=== PATIENT | female | born 1950 | race Caucasian/White ===

== ENCOUNTER 2022-05-30 12:39 | Emergency (ER) | payer OTHER ==
[2022-05-30 12:56] VITALS: BP 126/57; PULSE 79; RESP 16; TEMP 97.9; BMI 20.5
[2022-05-30 13:55] LABS: BASO % 0.3 % (0-2.0); HEMATOCRIT 42.1 % (32.4-45.2); HEMOGLOBIN 13.6 GM/dL (10.7-15.3); LYMPH % 24.8 % (8-40); MCH 30.5 pg (25.7-33.7); MCHC 32.3 g/dl (32.0-36.0); MEAN CELL VOLUME 94.3 fl (80-96); MEAN PLT VOLUME 6.5 fl (7.5-11.1); NEUT % 62.9 % (42.8-82.8); PLATELET COUNT 287 10^3/uL (134-434); RBC 4.47 M/mm3 (3.60-5.2); RDW 13.7 % (11.6-15.6); WHITE BLOOD COUNT 5.9 K/mm3 (4.0-10.0)
[2022-05-30 14:31] LABS: ALBUMIN 3.7 g/dl (3.4-5.0); BLOOD UREA NITROGEN 16.6 mg/dL (7-18)
[2022-05-30 14:33] LABS: CREATININE 0.7 mg/dL (0.55-1.3)
[2022-05-30 14:35] LABS: BILIRUBIN,TOTAL 0.5 mg/dL (0.2-1); TOT PROT 7.3 g/dl (6.4-8.2)
[2022-05-30 15:02] LABS: EPI CELLS >36 /uL (0-25.1); HYALINE CASTS 2 /uL (0-3.1); PH,URINE 6.5 (5.0-8.0); URINE APPEARANCE CLOUDY; URINE BACTERIA 1792 /uL (0-1359); URINE BILIRUBIN NEGATIVE (NEGATIVE); URINE COLOR YELLOW; URINE GLUCOSE (UA) NEGATIVE (NEGATIVE); URINE KETONE NEGATIVE (NEGATIVE); URINE LEUK ESTERASE 1+ (NEGATIVE); URINE NITRITE NEGATIVE (NEGATIVE); URINE PROTEIN NEGATIVE (NEGATIVE); URINE RBC 141 /uL (0-23.9); URINE WBC 59 /uL (0-25.8)
[2022-05-30 15:11] LABS: INR 1.12 (0.83-1.09); PROTHROMBIN TIME (PATIENT) 12.9 SEC (9.7-13.0)
== END 2022-05-30 19:31 | disposition home or self-care (01) ==
LOC: JERFT 12:39 → JER 12:39 → JERFT 19:31
DX: R10.84 Generalized abdominal pain (principal)
CPT/HCPCS: 0241U-QW; 36415; 71046-TC-FY; 71275-TC; 74177-TC; 76700-TC; 80053; 81003; 83690; 84443; 84484; 85025; 85379; 85610; 87086; 93005; 93010; 99285-25; Q9967

== ENCOUNTER 2024-01-15 11:42 | Emergency (ER) | payer OTHER ==
[2024-01-15 12:23] VITALS: BP 135/74; PULSE 88; RESP 18; TEMP 98.3; BMI 19.2
== END 2024-01-15 12:20 | disposition home or self-care (01) ==
LOC: JERFT 11:42
DX: M25.551 Pain in right hip (principal); G89.29 Other chronic pain
CPT/HCPCS: 99283-25

== ENCOUNTER 2024-03-28 05:00 | Day surgery (SDC) | payer OTHER ==
[2024-03-26 11:35] VITALS: BMI 18.8
[2024-03-28 12:50] VITALS: TEMP 98
[2024-03-28] MEDS: BUPIVACAINE HCL/PF 0.5% (5MG/ML) 10 ML VIAL IJ ONE ×2 (14:36)
[2024-03-28] MEDS: LIDOCAINE HCL 1% PRESERVATIVE FREE - 30ML VIAL IJ ONE ×2 (14:36)
[2024-03-28] MEDS: TRIAMCINOLONE ACETONIDE 40 MG/ML 10 ML VIAL IJ ONE ×2 (14:37)
[2024-03-28] MEDS: IOHEXOL 180 MG/1 ML ML IJ ONE ×2 (14:37)
[2024-03-28 14:56] VITALS: BP 112/57; PULSE 60; RESP 19
== END 2024-03-28 15:11 | disposition home or self-care (01) ==
LOC: JASU-SURG 05:00
PROVIDERS: ATTEND Pain Medicine Pain Medicine
PROC: 3E0U3GC Introduction of Other Therapeutic Substance into Joints, Percutaneous Approach (ICD-10-PCS; principal; 2024-03-28 14:35)
DX: M25.551 Pain in right hip (principal)
CPT/HCPCS: 76000-TC-FY

== ENCOUNTER 2024-05-16 11:04 | Inpatient (IN) | payer OTHER ==
[2024-05-16] MEDS ORDERED: guaiFENesin/D-METHORPHAN HB 10 ML UNIT-DOSE CUPS ONE (12:49)
[2024-05-16] MEDS: guaiFENesin 200 MG/10 ML 10 ML UNIT-DOSE CUPS PO ONE (12:52)
[2024-05-16 14:39] LABS: VENOUS BASE EXCESS 3.1 mmol/L (-2-2); VENOUS O2 SATURATION 37.9 % (70-80); VENOUS PCO2 55.3 mmHg (38-52); VENOUS PH 7.351 (7.310-7.410)
[2024-05-16 14:41] LABS: BASO % 0.1 % (0-2.0); HEMATOCRIT 40.5 % (32.4-45.2); HEMOGLOBIN 13.1 GM/dL (10.7-15.3); MCHC 32.4 g/dl (32.0-36.0); MEAN CELL VOLUME 95.7 fl (80-96); MEAN PLT VOLUME 6.5 fl (7.5-11.1); MONO % 6.7 % (3.8-10.2); NEUT % 84.2 % (42.8-82.8); PLATELET COUNT 315 10^3/uL (134-434); RBC 4.23 M/mm3 (3.60-5.2); RDW 13.5 % (11.6-15.6); WHITE BLOOD COUNT 18.4 K/mm3 (4.0-10.0)
[2024-05-16 14:44] LABS: EPI CELLS >36 /uL (0-25.1); HYALINE CASTS 12 /uL (0-3.1); PH,URINE 5.5 (5.0-8.0); URINE APPEARANCE CLOUDY; URINE BACTERIA 283 /uL (0-1359); URINE BILIRUBIN 2+ (NEGATIVE); URINE COLOR DK YELLOW; URINE GLUCOSE (UA) NEGATIVE (NEGATIVE); URINE KETONE 1+ (NEGATIVE); URINE LEUK ESTERASE TRACE (NEGATIVE); URINE NITRITE NEGATIVE (NEGATIVE); URINE PROTEIN 1+ (NEGATIVE); URINE WBC 45 /uL (0-25.8)
[2024-05-16 14:48] LABS: INR 1.12 (0.83-1.09); PROTHROMBIN TIME (PATIENT) 12.8 SEC (9.7-13.0)
[2024-05-16 14:51] LABS: ACTIVATED PTT 30.1 SECONDS (25.2-36.5)
[2024-05-16 14:57] LABS: POTASSIUM 3.8 mmol/L (3.5-5.1)
[2024-05-16 14:59] LABS: CALCIUM 9.4 mg/dL (8.5-10.1)
[2024-05-16 15:00] LABS: ALBUMIN 3.2 g/dl (3.4-5.0); BLOOD UREA NITROGEN 20.3 mg/dL (7-18)
[2024-05-16 15:03] LABS: CREATININE 0.7 mg/dL (0.55-1.3)
[2024-05-16 15:04] LABS: BILIRUBIN,TOTAL 0.5 mg/dL (0.2-1); TOT PROT 6.8 g/dl (6.4-8.2)
[2024-05-16 15:15] LABS: URINE RBC 121.9 /uL (0-23.9)
[2024-05-16] MEDS ORDERED: CEFTRIAXONE 1 G/50 ML PREMIX 50 ML IVPB ONE (15:38)
[2024-05-16] MEDS ORDERED: AZITHROMYCIN 500 MG TABLET ONE (15:38)
[2024-05-16] MEDS: AZITHROMYCIN 500 MG TABLET PO ONE (15:41)
[2024-05-16] MEDS: SODIUM CHLORIDE 0.9% 500 ML INFUS.BAG IV ONE (15:42)
[2024-05-16] MEDS: ALBUTEROL SO4 2.5/IPRATROPIUM 0.5 INH SOL 3 ML VIAL.NEB. NEB SCH (19:55)
[2024-05-16 20:00] VITALS: BMI 18.1
[2024-05-16] MEDS: ROSUVASTATIN CA 20 MG TABLET PO SCH (21:33)
[2024-05-16] MEDS: SODIUM CHLORIDE 500 ML IV STA (21:55)
[2024-05-17] MEDS: guaiFENesin 200 MG/10 ML 10 ML UNIT-DOSE CUPS PO ONE (04:12)
[2024-05-17] MEDS: CEFTRIAXONE 1 G/50 ML PREMIX 50 ML IVPB SCH (09:22)
[2024-05-17] MEDS: ENOXAPARIN NA (PORCINE) 40 MG/0.4 ML DISP.SYRIN SQ SCH (09:22)
[2024-05-17] MEDS ORDERED: guaiFENesin 200 MG/10 ML 10 ML UNIT-DOSE CUPS PO PRN (10:19)
[2024-05-17 10:33] LABS: BASO % 0.2 % (0-2.0); HEMOGLOBIN 12.3 GM/dL (10.7-15.3); LYMPH % 16.8 % (8-40); MCHC 33.2 g/dl (32.0-36.0); MEAN CELL VOLUME 93.3 fl (80-96); MEAN PLT VOLUME 6.6 fl (7.5-11.1); MONO % 5.7 % (3.8-10.2); NEUT % 77.3 % (42.8-82.8); PLATELET COUNT 273 10^3/uL (134-434); RBC 3.96 M/mm3 (3.60-5.2); RDW 13.7 % (11.6-15.6); WHITE BLOOD COUNT 9.2 K/mm3 (4.0-10.0)
[2024-05-17] MEDS: AZITHROMYCIN IVPB 250 MG in DEXTROSE 5%-WATER - 250 ML IVPB SCH (10:37)
[2024-05-17] MEDS: FLUTICASONE PROP 0.05% 16 GM NASAL SPRAY NS SCH (10:37)
[2024-05-17] MEDS: predniSONE 20 MG TABLET (UD) PO SCH (10:38)
[2024-05-17 10:57] LABS: POTASSIUM 3.4 mmol/L (3.5-5.1)
[2024-05-17 11:00] LABS: CALCIUM 8.8 mg/dL (8.5-10.1)
[2024-05-17 11:03] LABS: CREATININE 0.4 mg/dL (0.55-1.3)
[2024-05-17] MEDS ORDERED: ACETAMINOPHEN 500 MG TABLET (FP) PO PRN (12:08)
[2024-05-17] MEDS: guaiFENesin/D-METHORPHAN HB 10 ML UNIT-DOSE CUPS PO SCH (13:13)
[2024-05-17 18:52] VITALS: RESP 18
[2024-05-18 07:59] VITALS: BP 121/64; PULSE 79; TEMP 98.8
[2024-05-18 09:17] LABS: HEMATOCRIT 39.6 % (32.4-45.2); HEMOGLOBIN 12.9 GM/dL (10.7-15.3); MCH 30.8 pg (25.7-33.7); MCHC 32.7 g/dl (32.0-36.0); MEAN CELL VOLUME 94.1 fl (80-96); MEAN PLT VOLUME 6.3 fl (7.5-11.1); PLATELET COUNT 344 10^3/uL (134-434); RBC 4.21 M/mm3 (3.60-5.2); RDW 13.5 % (11.6-15.6); WHITE BLOOD COUNT 10.3 K/mm3 (4.0-10.0)
[2024-05-18 09:39] LABS: POTASSIUM 3.4 mmol/L (3.5-5.1)
[2024-05-18 09:55] LABS: BLOOD UREA NITROGEN 14.8 mg/dL (7-18); CALCIUM 9.3 mg/dL (8.5-10.1)
[2024-05-18 09:59] LABS: CREATININE 0.6 mg/dL (0.55-1.3)
[2024-05-18] MEDS: POTASSIUM CHLORIDE ORAL LIQUID 20 MEQ/15 ML PO ONE (11:48)
[2024-05-18] MEDS: POTASSIUM CHLORIDE TABS 20 MEQ TABLET.ER (FP) PO ONE (11:49)
== END 2024-05-18 13:55 | disposition home or self-care (01) | DRG 190 ==
LOC: JER 11:04 → JERBED 16:25 → INTOOBSV 16:25 → J5S 17:17 → OBSVTOIN 05-17 10:58
PROVIDERS: ATTEND Internal Medicine
DX: J44.0 Chronic obstructive pulmonary disease with (acute) lower respiratory infection (principal); J18.9 Pneumonia, unspecified organism; E44.0 Moderate protein-calorie malnutrition; Z68.1 Body mass index [BMI] 19.9 or less, adult; E78.5 Hyperlipidemia, unspecified; E11.9 Type 2 diabetes mellitus without complications; I73.9 Peripheral vascular disease, unspecified; K22.2 Esophageal obstruction
CPT/HCPCS: 0241U-QW; 36415; 71046-TC-FY; 71250-TC; 80048; 80053; 81003; 82803; 83605; 84484; 85025; 85027; 85610; 85730; 86850; 86900; 86901; 87040; 87086; 93005; 93010; 94640; 99285-25; G0378